=== PATIENT | female | born 1970 | race Caucasian/White ===

== ENCOUNTER 2017-06-02 21:45 | Inpatient (IN) | payer BC, OTHER ==
[~2017-06-02] VITALS: Ht 162.6 cm; Wt 85.6 kg
[~2017-06-02 21:45] MED LIST: BUTORPHANO10 MG/1 ML NS; CLEOCIN300 MG PO; COMPAZINE5 MG PO; CYMBALTA60 MG PO; NAMENDA1 EACH PO; PERCOCET 5/31 TABLET PO; PREVACID30 MG PO; PRINIVIL20 MG PO; PROTRIPTYLINE HC5 MG PO; SEROQUEL50 MG PO; TRAMADOL HCL50 MG PO; TYLENOL WITH C1 EACH PO; ULTRAM50 MG PO; [UNRECOGNIZED DRUG - OTHER] PO
[2017-06-02 22:48] LABS: HEMATOCRIT 45.1 % (36.0-46.0); MCHC 34.1 G/DL (30.0-36.0); MCV 84.9 FL (83-99); MEAN PLAT.VOLUME 9.5 uM^3 (9.5-12.4); PLATELET COUNT 309 K/uL (156-360); RBC DIS.WIDTH-CV 13.2 % (11.8-14.6); RBC DIS.WIDTH-SD 41.1 % (39-53); RED BLOOD COUNT 5.31 M/uL (3.80-5.20); WHITE BLOOD COUNT 10.3 K/uL (4.1-10.2)
[2017-06-02 22:56] LABS: CHLORIDE 112 mEq/L (99-109); POTASSIUM 4.4 mEq/L (3.7-5.4); SODIUM 143 mEq/L (136-147)
[2017-06-02 22:58] LABS: GLUCOSE 110 mg/dL (70-99)
[2017-06-02 22:59] LABS: ANION GAP 12 MEQ/L (2-14)
[2017-06-02 23:02] LABS: GFR ESTIMATE (CALCULATED) > 59 mL/min/
[2017-06-02 23:03] LABS: UREA NITROGEN (BUN) 16 mg/dL (9-23)
[2017-06-02 23:08] LABS: TROP-I INTERPRETATION NEGATIVE; TROPONIN-I < 0.01 ng/mL (0.0-0.30)
[2017-06-03 02:32] LABS: BASE EXCESS -1.8 mEq/L (-3 to +3); BICARBONATE 23.1 mEq/L (22-26); CARBOXY HGB 3.6 % (0-5); METHEMOGLOBIN 0.6 % (0-1.5); PCO2 39 mm Hg (35-45); PO2 70 mm Hg (80-100); pH 7.38 (7.35-7.45)
[2017-06-03 02:33] LABS: COMMENTS - BLOOD GASES A+C+; DEVICE NC; O2 FLOW 4 L/MIN; SITE LR; TOTAL RESP RATE 18 resp/min
[2017-06-03] MEDS ORDERED: LISINOPRIL20 MG PO (02:56)
[2017-06-03] MEDS ORDERED: DULOXETINE HCL60 MG PO (02:56)
[2017-06-03 03:47] VITALS: BP 136/96
[2017-06-03] MEDS ORDERED: PROTONIX40 MG PO (03:48)
[2017-06-03 08:45] VITALS: BP 147/96
[2017-06-03 11:01] VITALS: BP 140/88
[2017-06-03 16:39] VITALS: BP 139/91
[2017-06-03 23:37] VITALS: BP 126/70
[2017-06-04 08:00] VITALS: BP 120/68
[2017-06-04] MEDS ORDERED: PREDNISONE10 MG PO (11:03)
[2017-06-04] MEDS ORDERED: PROVENTIL HFA6.7 GM IH (11:03)
[2017-06-04] MEDS ORDERED: SPIRIVA RESPIMAT4 GM IH (11:03)
[2017-06-04] MEDS ORDERED: Ocean Nasal 0.65% BOTH NARES (11:03)
[2017-06-04] MEDS ORDERED: AZITHROMYCIN500 M1 PO (11:03)
[2017-06-04] MEDS ORDERED: PANTOPRAZOLE SO40 MG PO (11:03)
== END 2017-06-04 11:45 | disposition home or self-care (01) | DRG 190 ==
LOC: EME 21:45 → 5SOUTH 06-03 02:13 → EDOF 06-03 02:13 → ENRESERV 06-03 02:14 → 5SOUTH 06-03 03:09
PROVIDERS: Physician Assistant Medical
DX: J44.1 Chronic obstructive pulmonary disease with (acute) exacerbation (principal); J96.01 Acute respiratory failure with hypoxia; G20 Parkinson's disease; G40.909 Epilepsy, unspecified, not intractable, without status epilepticus; K50.90 Crohn's disease, unspecified, without complications; G35 Multiple sclerosis; I10 Essential (primary) hypertension; K21.9 Gastro-esophageal reflux disease without esophagitis; M81.0 Age-related osteoporosis without current pathological fracture; F17.201 Nicotine dependence, unspecified, in remission; E66.9 Obesity, unspecified; Z96.649 Presence of unspecified artificial hip joint; Z86.73 Personal history of transient ischemic attack (TIA), and cerebral infarction without residual deficits; Z88.0 Allergy status to penicillin; Z91.19 Patient's noncompliance with other medical treatment and regimen; Z68.32 Body mass index [BMI] 32.0-32.9, adult
CPT/HCPCS: 36600; 71020; 80048; 82803; 84484; 85027; 85379; 93005; 94640; 94640 76; 94644; 94799; 99202; 99281; 99285; J1100; J1650; J2930; J3475; J7030